=== PATIENT | male | born 1965 | race African-American/Black ===

== ENCOUNTER 2017-02-02 06:48 | Emergency (ER) | payer MEDICAID ==
[~2017-02-02] VITALS: Ht 177.8 cm; Wt 116.7 kg
[2017-02-02 07:40] LABS: HEMOGLOBIN 15.8 g/dL (13.7-18.0)
[2017-02-02 07:50] LABS: PATH.CAST-FLAG NOT PRESENT; SPERM-FLAG NOT PRESENT; SRC-FLAG NOT PRESENT; XTAL-FLAG NOT PRESENT; YLC-FLAG NOT PRESENT
[2017-02-02 07:53] LABS: BLOOD UREA NITROGEN 10 mg/dL (7-18)
[2017-02-02 07:57] LABS: ASPARTATE AMINO TRANSFERASE 17 U/L (15-37)
[2017-02-02 10:18] VITALS: BP 157/104
[2017-02-02] MEDS ORDERED: OMNIPAQUE 350 MG/ML, 100ML BOTTLE ONE (18:24)
== END 2017-02-02 10:20 | disposition home or self-care (01) ==
LOC: ED 07:33
DX: K57.32 Diverticulitis of large intestine without perforation or abscess without bleeding (principal); I10 Essential (primary) hypertension
CPT/HCPCS: 36415; 74177; 80053; 81001; 85025; 87086; 99285; Q9967